=== PATIENT | male | born 1965 | race Caucasian/White ===

== ENCOUNTER → 2024-05-24 | Outpatient (CLI) | payer BC, SELFPAY ==
[2024-05-24 09:11] LABS: Glucose Estimated Average 154 mg/dL (80-131)
[2024-05-24 09:18] LABS: Alanine Aminotransferase 35 U/L (10-49); Albumin, Serum 5.2 gm/dL (3.5-5.0); Alkaline Phosphatase 77 U/L (46-116); Anion Gap 9 (7-16); Aspartate Amino Transferase 30 U/L (0-34); BUN/Creatinine Ratio 16 Ratio (12-20); Bilirubin,Total 2.3 mg/dL (0.3-1.2); Blood Urea Nitrogen 14 mg/dL (9-23); Carbon Dioxide 25.8 mMol/L (20.0-31.0); Cardiac Risk Estimate 2.8 RATIO (4.0-6.7); Chloride 104 mMol/L (98-107); Cholesterol 132 mg/dL (132-200); Creatinine (Component) 0.9 mg/dL (0.6-1.3); Globulin 2.6 gm/dL (2.3-3.5); Glucose 142 mg/dL (74-106); HDL Cholesterol 48 mg/dL (40-60); LDL Cholesterol,Calculated 67 mg/dL (0-130); Osmolality,Calculated 280 (275-295); Potassium 4.5 mMol/L (3.4-5.1); Sodium 139 mMol/L (136-145); Total Protein 7.8 gm/dL (5.7-8.2); Triglycerides 83 mg/dL (30-150); eGFR > 60 See Note
== END | disposition home or self-care (01) ==
LOC: COPL 07:26
PROVIDERS: PCP Family Medicine; Referring Provider Family Medicine; Visit Provider Family Medicine
DX: E11.65 Type 2 diabetes mellitus with hyperglycemia (principal); E78.2 Mixed hyperlipidemia; I10 Essential (primary) hypertension
CPT/HCPCS: 36415; 80053; 80061; 83036

== ENCOUNTER → 2024-09-01 | Outpatient (CLI) | payer BC, SELFPAY ==
[2024-09-01 08:47] LABS: Glucose Estimated Average 148 mg/dL (80-131); Hemoglobin A1C 6.8 % Hgb (4.8-6.0)
[2024-09-01 08:52] LABS: Alanine Aminotransferase 26 U/L (10-49); Albumin, Serum 4.5 gm/dL (3.5-5.0); Alkaline Phosphatase 71 U/L (46-116); Anion Gap 9 (7-16); Aspartate Amino Transferase 22 U/L (0-34); BUN/Creatinine Ratio 18 Ratio (12-20); Bilirubin,Total 1.7 mg/dL (0.3-1.2); Blood Urea Nitrogen 16 mg/dL (9-23); Calcium 9.9 mg/dL (8.3-10.6); Calcium (Corrected) 9.9 mg/dL (8.5-10.1); Carbon Dioxide 28.5 mMol/L (20.0-31.0); Cardiac Risk Estimate 2.5 RATIO (4.0-6.7); Chloride 106 mMol/L (98-107); Cholesterol 126 mg/dL (132-200); Creatinine (Component) 0.9 mg/dL (0.6-1.3); Globulin 2.3 gm/dL (2.3-3.5); Glucose 130 mg/dL (74-106); HDL Cholesterol 50 mg/dL (40-60); LDL Cholesterol,Calculated 49 mg/dL (0-130); Osmolality,Calculated 288 (275-295); Potassium 4.8 mMol/L (3.4-5.1); Sodium 143 mMol/L (136-145); Total Protein 6.8 gm/dL (5.7-8.2); Triglycerides 133 mg/dL (30-150); eGFR > 60 See Note
== END | disposition home or self-care (01) ==
LOC: COPL 07:08
PROVIDERS: PCP Family Medicine; Referring Provider Family Medicine; Visit Provider Family Medicine
DX: E11.65 Type 2 diabetes mellitus with hyperglycemia (principal)
CPT/HCPCS: 36415; 80053; 80061; 83036

== ENCOUNTER → 2025-04-11 | Outpatient (CLI) | payer BC, SELFPAY ==
[2025-04-11 08:49] LABS: Glucose Estimated Average 180 mg/dL (80-131); Hemoglobin A1C 7.9 % Hgb (4.8-6.0)
[2025-04-11 09:42] LABS: Alanine Aminotransferase 24 U/L (10-49); Alkaline Phosphatase 76 U/L (46-116); Anion Gap 11 (7-16); Aspartate Amino Transferase 23 U/L (0-34); BUN/Creatinine Ratio 8 Ratio (12-20); Bilirubin,Total 1.8 mg/dL (0.3-1.2); Blood Urea Nitrogen 7 mg/dL (9-23); Calcium 9.8 mg/dL (8.3-10.6); Carbon Dioxide 29.0 mMol/L (20.0-31.0); Cardiac Risk Estimate 2.7 RATIO (4.0-6.7); Chloride 105 mMol/L (98-107); Cholesterol 118 mg/dL (132-200); Creatinine (Component) 0.9 mg/dL (0.6-1.3); Glucose 147 mg/dL (74-106); HDL Cholesterol 44 mg/dL (40-60); LDL Cholesterol,Calculated 47 mg/dL (0-130); Osmolality,Calculated 289 (275-295); Potassium 4.8 mMol/L (3.4-5.1); Sodium 145 mMol/L (136-145); Total Protein 7.1 gm/dL (5.7-8.2); Triglycerides 135 mg/dL (30-150); eGFR > 60 See Note
[2025-04-11 10:00] LABS: Albumin, Serum 4.8 gm/dL (3.5-5.0); Albumin/Globulin Ratio 2.1 (1.2-2.2); Calcium (Corrected) 9.8 mg/dL (8.5-10.1); Globulin 2.3 gm/dL (2.3-3.5)
== END | disposition home or self-care (01) ==
LOC: COPL 07:38
PROVIDERS: PCP Family Medicine; Referring Provider Family Medicine; Visit Provider Family Medicine
DX: E11.65 Type 2 diabetes mellitus with hyperglycemia (principal); E78.2 Mixed hyperlipidemia
CPT/HCPCS: 36415; 80053; 80061; 83036